=== PATIENT | male | born 1980 | race Caucasian/White ===

== ENCOUNTER 2018-11-10 11:33 | Outpatient (CLI) | payer MEDICAID | END 2018-11-10 11:34 | disposition home or self-care (01) | DRG 561 | LOC: EDBD → CONVCARE 11:33 | PROVIDERS: ATTEND Orthopaedic Surgery | DX: S92.001D Unspecified fracture of right calcaneus, subsequent encounter for fracture with routine healing (principal); S92.002D Unspecified fracture of left calcaneus, subsequent encounter for fracture with routine healing | CPT/HCPCS: 73650 ==

== ENCOUNTER 2018-12-08 13:28 | Outpatient (CLI) | payer SELFPAY | END 2018-12-08 13:29 | disposition home or self-care (01) | DRG 561 | LOC: CONVCARE 13:28 | PROVIDERS: ATTEND Orthopaedic Surgery | DX: S92.002D Unspecified fracture of left calcaneus, subsequent encounter for fracture with routine healing (principal); S92.001D Unspecified fracture of right calcaneus, subsequent encounter for fracture with routine healing | CPT/HCPCS: 73650 ==

== ENCOUNTER 2019-03-05 17:39 | Emergency (ER) | payer MEDICAID ==
[2019-03-05 17:51] VITALS: BP 141/81; PULSE 94; RESP 20; TEMP 97.9; O2SAT 99
[2019-03-05] MEDS ORDERED: AMOXIL/CLAVULANATE 875/125 TAB PO SCH (18:15)
[2019-03-05] MEDS ORDERED: AMOXIL/CLAVULANATE 875/125 TAB PO ONE (18:21)
[2019-03-05] MEDS ORDERED: AMOXIL/CLAVULANATE 400/5 ML PDR ONE (18:24)
[2019-03-05] MEDS ORDERED: AUGMENTIN(FRIDGE) 400 MG/5 ML PO ONE (18:27)
== END 2019-03-05 18:33 | disposition home or self-care (01) | DRG 159 ==
LOC: ED 17:39
DX: K04.7 Periapical abscess without sinus (principal)
CPT/HCPCS: 99282; A9270-GY

== ENCOUNTER 2019-05-23 20:48 | Emergency (ER) | payer MEDICAID ==
[2019-05-23] MEDS ORDERED: SODIUM CHLORIDE 0.9% 1000ML 1,000 ML IV ONE (21:05)
[2019-05-23 21:15] LABS: BASOPHILS % (AUTO) 1 % (0-3); EOSINOPHILS % (AUTO) 1 % (0-9); HEMATOCRIT 45 % (39-53); HEMOGLOBIN 14.8 gm/dl (13.5-17.7); LYMPHOCYTES % (AUTO) 22.8 % (10-50); MEAN CORPUSCULAR HEMOGLOBIN 29.2 pg (27.0-32.0); MEAN CORPUSCULAR HGB CONC 32.9 gm/dl (32.0-36.0); MEAN CORPUSCULAR VOLUME 89 fL (80-100); MONOCYTES % (AUTO) 6.6 % (0-12); NEUTROPHILS % (AUTO) 68.6 % (37-80)
[2019-05-23 21:30] LABS: ALBUMIN 3.9 gm/dl (3.4-5.0); ALKALINE PHOSPHATASE 76 IU/L (46-116); ALT 26 IU/L (14-63); AST 18 IU/L (15-37); BILIRUBIN,TOTAL 0.2 mg/dl (0.2-1.0); BLOOD UREA NITROGEN 12 mg/dl (7-18); CALCIUM 8.7 mg/dl (8.5-10.1); CARBON DIOXIDE 30.9 mEq/L (21-32); CHLORIDE 105 mMol/L (98-107); GLUCOSE 94 mg/dl (74-106); TOTAL PROTEIN 7.3 gm/dl (6.4-8.2)
[2019-05-23 21:33] LABS: CRP INFLAMMATORY < 0.05 mg/dl (0.00-0.33)
[2019-05-23 21:50] LABS: APPEARANCE,URINE Clear; BILIRUBIN,URINE NEGATIVE (NEGATIVE); COLOR,URINE Light yellow; GLUCOSE, URINE (UA) NEGATIVE (NEGATIVE); KETONES,URINE NEGATIVE (NEGATIVE); LEUKOCYTE ESTERASE ,URINE NEGATIVE (NEGATIVE); NITRATE,URINE NEGATIVE (NEGATIVE); OCCULT BLOOD,URINE NEGATIVE (NEG-TRACE); PH,URINE 6.5; UROBILINOGEN,URINE 0.2 (0.2-1.0 EU)
[2019-05-23 22:09] LABS: BACTERIA NEGATIVE (< 1+); CRYSTALS NEGATIVE (0-3 AVE/HPF); EPITHELIAL CELLS NEGATIVE (SQUAMOUS); RBC,URINE NEG (0-3AV/HPF); WBC,URINE NEG (0-5AV/HPF)
[2019-05-23 22:10] VITALS: RESP 16; TEMP 97.5
[2019-05-23] MEDS ORDERED: OMEPRAZOLE 20 MG CAPSULE PO ONE (22:26)
[2019-05-23] MEDS ORDERED: PANTOPRAZOLE SODIUM 40 MG ECT PO ONE ×2 (22:37→22:38)
[2019-05-24 01:08] VITALS: BP 138/85; PULSE 90; O2SAT 98
== END 2019-05-23 22:46 | disposition home or self-care (01) | DRG 392 ==
LOC: ED 20:48
DX: R10.9 Unspecified abdominal pain (principal); R11.10 Vomiting, unspecified; R19.7 Diarrhea, unspecified
CPT/HCPCS: 74177; 80053; 81001; 83690; 85025; 86140; 96365; 99283; 99284; Q9967; A9270-GY